=== PATIENT | female | born 1990 | race Caucasian/White ===

== ENCOUNTER 2016-11-24 19:59 | Emergency (ER) | payer OTHER | END 2016-11-24 22:46 | disposition home or self-care (01) | LOC: ER 19:59 | DX: G43.909 Migraine, unspecified, not intractable, without status migrainosus (principal); F17.210 Nicotine dependence, cigarettes, uncomplicated | CPT/HCPCS: 70450; 81025; 96374; 99070; 99284-25; J2765 ==